=== PATIENT | male | born 1995 | race Two or more races ===

== ENCOUNTER 2024-11-20 10:35 | Outpatient (RCR) | payer MEDICAID, SELFPAY ==
--- NOTE | 2024-11-20 10:00 | XR_ITS ---
Examination: CRISELDA, hepatobiliary radioisotope scan Gallbladder ejection fraction study. Date and time of exam: November 20, 2024 1035 hours INDICATIONS: Epigastric pain sharp abdominal pain and cramping one year Technique: 5.6 mCi of 99M Hepatolite administered. Serial imaging then obtained from immediate through 60 minutes. 2.0 mcg selective catheter Kinevac administered for gallbladder ejection fraction study. Findings: Radioisotope activity within the liver is reasonably homogenous. Gallbladder, common bile duct small bowel activity noted Impression: Gallbladder activity Abnormal gallbladder ejection fraction, 8%, normal greater than 35%
== END 2024-11-25 23:59 | disposition home or self-care (01) ==
LOC: SNUC 10:35
PROVIDERS: Referring Provider Internal Medicine Gastroenterology; Visit Provider Internal Medicine Gastroenterology
DX: R93.89 Abnormal findings on diagnostic imaging of other specified body structures (principal)
CPT/HCPCS: 78227; A9537; J2805